=== PATIENT | female | born 2000 | race African-American/Black ===

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

== ENCOUNTER 2019-02-15 21:15 | Emergency (ER) | payer MEDICAID ==
[~2019-02-15] VITALS: Ht 172.7 cm; Wt 72.7 kg
[2019-02-15 22:53] LABS: CLARITY URINE CLEAR (CLEAR); COLOR URINE YELLOW (YELLOW); KETONES URINE NEGATIVE (NEGATIVE); LEUKOCYTE ESTERASE URINE TRACE (NEGATIVE); NITRITE URINE NEGATIVE (NEGATIVE); OCCULT BLOOD URINE NEGATIVE (NEGATIVE); PROTEIN URINE NEGATIVE (NEGATIVE); SPECIFIC GRAVITY URINE 1.005 (1.005-1.030); UROBILINOGEN URINE 0.2 E.U./dL (0.2-1.0)
[2019-02-15 23:01] LABS: *AMPHETAMINES SCREEN URINE NEGATIVE (NEGATIVE); *BARBITURATES SCREEN URINE NEGATIVE (NEGATIVE); *BENZODIAZEPINES SCREEN URINE NEGATIVE (NEGATIVE); *COCAINE SCREEN URINE NEGATIVE (NEGATIVE)
[2019-02-15 23:02] LABS: METHADONE URINE SCREEN NEGATIVE (NEGATIVE); OPIATES URINE SCREEN NEGATIVE (NEGATIVE); PHENCYCLIDINE URINE SCREEN NEGATIVE (NEGATIVE)
[2019-02-15 23:04] LABS: CANNABINOID URINE SCREEN PRESUMTIVE POSITIVE (NEGATIVE)
[2019-02-15 23:10] LABS: BASOPHILS % 0.1 % (0.0-2.0); CHLORIDE 108 mEq/L (98-107); EOSINOPHILS % 0.4 % (0.0-5.0); HEMOGLOBIN. 11.7 g/dL (12.0-16.0); LYMPHOCYTES % 14.7 % (20.0-50.0); MEAN CORPUSCULAR HEMOGLOBIN 26.5 pg (28.0-32.0); MEAN PLATELET VOLUME 9.2 fl (7.4-10.4); MONOCYTES % 6.7 % (2.0-8.0); NEUTROPHILS % 78.1 % (40.0-76.0); PLATELET 244 x1000/uL (130-400); RED BLOOD CELL COUNT 4.43 mill/uL (4.2-5.4); RED CELL DISTRIBUTION WIDTH 15.1 % (11.6-14.6)
[2019-02-15 23:14] LABS: ETHANOL BLOOD < 10 mg/dL
[2019-02-15 23:33] LABS: B-HCG QUANTITATIVE 17708 mIU/mL (<3)
[2019-02-16] MEDS ORDERED: DIPHENHYDRAMINE 50MG CAPSULE PO ONE (00:45)
[2019-02-16 18:30] VITALS: BP 95/48
== END 2019-02-16 18:57 | disposition home or self-care (01) ==
LOC: ER 21:15
DX: O99.322 Drug use complicating pregnancy, second trimester (principal); F12.10 Cannabis abuse, uncomplicated; Z3A.19 19 weeks gestation of pregnancy; Z59.0 Homelessness
CPT/HCPCS: 36415; 76805; 80053; 80305; 80307; 80320; 80329; 81003; 81025; 84702; 85025; 93005; 99284; Q0163; G0480

== ENCOUNTER 2019-03-10 21:47 | Emergency (ER) | payer MEDICAID ==
[~2019-03-10] VITALS: Ht 167.6 cm; Wt 80.0 kg
[2019-03-10 21:59] VITALS: BP 121/55
== END 2019-03-10 22:40 | disposition left against medical advice (07) ==
LOC: ER 21:47
DX: R10.9 Unspecified abdominal pain (principal); Z53.21 Procedure and treatment not carried out due to patient leaving prior to being seen by health care provider

== ENCOUNTER 2024-07-28 01:03 | Emergency (ER) | payer MEDICAID ==
[~2024-07-28] VITALS: Ht 170.2 cm; Wt 70.0 kg
[2024-07-28 01:04] VITALS: BP 107/80; PULSE 88; RESP 18; TEMP 98.4; O2SAT 96
[2024-07-28] MEDS ORDERED: SILV20CR13 TP (01:13)
[2024-07-28] MEDS: SILVER SULFADIAZINE 1% CREAM 25GM TOP ONE (01:54)
== END 2024-07-28 02:25 | disposition home or self-care (01) ==
LOC: ER 01:13
DX: T20.05XA Burn of unspecified degree of scalp [any part], initial encounter (principal); T31.0 Burns involving less than 10% of body surface; F12.90 Cannabis use, unspecified, uncomplicated; F10.20 Alcohol dependence, uncomplicated; F19.90 Other psychoactive substance use, unspecified, uncomplicated; X58.XXXA Exposure to other specified factors, initial encounter; Y93.89 Activity, other specified; Y92.89 Other specified places as the place of occurrence of the external cause; Y99.8 Other external cause status
CPT/HCPCS: 16000; 99283

== ENCOUNTER 2024-11-12 17:48 | Emergency (ER) | payer MEDICAID ==
[~2024-11-12] VITALS: Ht 172.7 cm; Wt 86.5 kg
[~2024-11-12 17:48] MED LIST: SILV20CR13 TP
[2024-11-12 17:50] VITALS: BP 110/80; PULSE 130; RESP 18; TEMP 98.4; O2SAT 98
[2024-11-12] MEDS ORDERED: PROZAC (17:50)
== END 2024-11-12 20:27 | disposition home or self-care (01) ==
LOC: ER 17:48 → MERGE 17:48 → ER 20:27
DX: F10.929 Alcohol use, unspecified with intoxication, unspecified (principal); F15.90 Other stimulant use, unspecified, uncomplicated; F41.9 Anxiety disorder, unspecified; E11.9 Type 2 diabetes mellitus without complications; F17.200 Nicotine dependence, unspecified, uncomplicated; Y90.9 Presence of alcohol in blood, level not specified
CPT/HCPCS: 99283; Z7610

== ENCOUNTER 2024-11-12 20:26 | Emergency (ER) | payer MEDICAID ==
[~2024-11-12] VITALS: Ht 165.1 cm; Wt 82.0 kg
[2024-11-12 21:29] VITALS: BP 135/72; PULSE 105; RESP 16; TEMP 98.2; O2SAT 98
== END 2024-11-13 05:10 | disposition home or self-care (01) ==
LOC: ER 20:26
DX: Z00.00 Encounter for general adult medical examination without abnormal findings (principal); Z59.00 Homelessness unspecified; F10.90 Alcohol use, unspecified, uncomplicated; Y90.9 Presence of alcohol in blood, level not specified; F12.90 Cannabis use, unspecified, uncomplicated
CPT/HCPCS: 99281

== ENCOUNTER 2024-11-13 08:19 | Emergency (ER) | payer MEDICAID ==
[~2024-11-13] VITALS: Ht 170.2 cm; Wt 86.1 kg
[~2024-11-13 08:19] MED LIST changes: +PROZAC
[2024-11-13 08:25] VITALS: O2SAT 100
[2024-11-13 09:32] LABS: BASOPHILS % 0.4 % (0.0-2.0); DIFFERENTIAL COMMENT 0; EOSINOPHILS % 0.7 % (0.0-5.0); HEMATOCRIT. 37.1 % (36.0-48.0); LYMPHOCYTES % 16.4 % (20.0-50.0); MEAN CORPUSCULAR HEMOGLOBIN 23.9 pg (28.0-32.0); MEAN CORPUSCULAR HGB CONC 32.4 g/dL (31.0-37.0); MEAN CORPUSCULAR VOLUME 73.6 fL (81.0-99.0); MEAN PLATELET VOLUME 8.4 fl (7.4-10.4); MONOCYTES % 8.6 % (2.0-8.0); NEUTROPHILS % 73.9 % (40.0-76.0); PLATELET 476 x1000/uL (130-400); RED BLOOD CELL COUNT 5.03 mill/uL (4.2-5.4); RED CELL DISTRIBUTION WIDTH 17.8 % (11.6-14.6); WHITE BLOOD COUNT 11.1 x1000/uL (4.5-11.0)
[2024-11-13 09:45] LABS: CHLORIDE 102 mEq/L (98-107); POTASSIUM 3.7 mEq/L (3.5-5.1); SODIUM 134 mEq/L (136-145)
[2024-11-13 09:46] LABS: CARBON DIOXIDE 26 mEq/L (21-32)
[2024-11-13 09:47] LABS: CALCIUM 9.6 mg/dL (8.7-10.4); HCG SCREEN NEGATIVE
[2024-11-13 09:51] LABS: CREATININE 0.8 mg/dL (0.6-1.0); GLUCOSE 113 mg/dL (70-105)
[2024-11-13 09:52] LABS: UREA NITROGEN BLOOD 8 mg/dL (9-23)
[2024-11-13 09:53] LABS: ACETAMINOPHEN < 2 ug/mL (10-30); ALANINE AMINOTRANSFERASE 10 IU/L (10-49); ALBUMIN 4.1 g/dL (3.2-4.8); ASPARTATE AMINOTRANSFERASE 19 IU/L (<34)
[2024-11-13 09:54] LABS: BILIRUBIN DIRECT 0.1 mg/dL (<=3.0); BILIRUBIN TOTAL 0.4 mg/dL (0.1-1.0); PROTEIN TOTAL 7.6 g/dL (6.0-8.3)
[2024-11-13 09:58] LABS: ETHANOL BLOOD < 10 mg/dL (<10)
[2024-11-13] MEDS: ACETAMINOPHEN 325MG TABLET PO ONE (18:43)
[2024-11-13 21:23] LABS: CLARITY URINE CLOUDY (CLEAR); COLOR URINE YELLOW (YELLOW); GLUCOSE URINE NEGATIVE (NEGATIVE); KETONES URINE NEGATIVE (NEGATIVE); LEUKOCYTE ESTERASE URINE 2+ (NEGATIVE); NITRITE URINE NEGATIVE (NEGATIVE); OCCULT BLOOD URINE NEGATIVE (NEGATIVE); PH URINE 7.5 (4.5-8.0); PROTEIN URINE NEGATIVE (NEGATIVE); SPECIFIC GRAVITY URINE 1.012 (1.005-1.030)
[2024-11-13 21:36] LABS: *AMPHETAMINES SCREEN URINE NEGATIVE (NEGATIVE); *BARBITURATES SCREEN URINE NEGATIVE (NEGATIVE); *BENZODIAZEPINES SCREEN URINE NEGATIVE (NEGATIVE); *COCAINE SCREEN URINE NEGATIVE (NEGATIVE)
[2024-11-13 21:37] LABS: CANNABINOID URINE SCREEN NEGATIVE (NEGATIVE); ECSTASY MDMA SCREEN URINE NEGATIVE (NEGATIVE); METHADONE URINE SCREEN NEGATIVE (NEGATIVE); OPIATES URINE SCREEN NEGATIVE (NEGATIVE); PHENCYCLIDINE URINE SCREEN NEGATIVE (NEGATIVE)
[2024-11-13 21:44] LABS: BACTERIA URINE TRACE; RBC URINE NONE SEEN /hpf (0-2); SQUAMOUS EPITHELIAL CELL URINE 1+ /lpf (RARE/1+)
[2024-11-14] MEDS ORDERED: ACETAMINOPHEN 325MG TABLET PO NR (10:35)
[2024-11-14] MEDS: BUSPIRONE HCL 5MG TABLET PO SCH (12:53)
[2024-11-15] MEDS: FLUOXETINE HCL 10 MG CAPSULE PO SCH (08:59)
[2024-11-15] MEDS: HYDROCODONE/ACETAMINOPHEN 5/325MG TABLET PO ONE (16:43)
[2024-11-16 15:59] VITALS: BP 141/83; PULSE 87; RESP 17; TEMP 36.72516; O2SAT 99
== END 2024-11-16 17:05 ==
LOC: ER 08:19 → MERGE 08:19 → ER 11-16 17:05
DX: R45.851 Suicidal ideations (principal); E11.9 Type 2 diabetes mellitus without complications; F41.9 Anxiety disorder, unspecified; Z20.822 Contact with and (suspected) exposure to COVID-19
CPT/HCPCS: 80076; 80305; 80048; 81003; 80307; 80329; 80320; 84703; 85025; 36415; 99285; 87426; Z7610; A4606; G0480

== ENCOUNTER 2025-01-11 06:10 | Emergency (ER) | payer MEDICAID ==
[~2025-01-11] VITALS: Ht 167.6 cm; Wt 75.0 kg
[2025-01-11 06:12] VITALS: BP 124/70; PULSE 80; RESP 16; TEMP 36.9; O2SAT 100
[2025-01-11] MEDS ORDERED: BO1 TP (08:29)
== END 2025-01-11 08:47 | disposition home or self-care (01) ==
LOC: ER 06:10
DX: R21 Rash and other nonspecific skin eruption (principal); E11.9 Type 2 diabetes mellitus without complications
CPT/HCPCS: 99283